=== PATIENT | male | born 1945 | race Caucasian/White ===

== ENCOUNTER 2021-11-19 19:38 | Emergency (ER) | payer MEDICARE ==
[~2021-11-19] VITALS: Ht 177.8 cm; Wt 68.0 kg
[2021-11-19 21:09] VITALS: BP 130/78
[2021-11-19] MEDS ORDERED: LIDOCAINE 1% INJ 50 ML MDV IJ ONE (21:29)
[2021-11-19] MEDS ORDERED: LIDOCAINE HCL/PF 1% 30 ML VIAL TP ONE (21:30)
== END 2021-11-19 22:30 | disposition home or self-care (01) ==
LOC: ER 19:49
DX: S61.216A Laceration without foreign body of right little finger without damage to nail, initial encounter (principal); W25.XXXA Contact with sharp glass, initial encounter; Y93.89 Activity, other specified; Y92.89 Other specified places as the place of occurrence of the external cause; Y99.8 Other external cause status
CPT/HCPCS: 12001; 99282; J3490 ×2